=== PATIENT | female | born 1945 | race Caucasian/White ===

== ENCOUNTER 2019-04-27 08:10 | Day surgery (SDC) | payer OTHER, BC ==
[2019-04-18 16:51] LABS: Hematocrit 40.2 % (36.0-45.0); RBC Red Blood Cell Count 4.33 M/uL (3.86-4.86)
[2019-04-18 16:52] LABS: Basophils % 0.7 % (0-1.3); Lymphocytes % 28.5 % (15.3-44.8); MPV 8.4 fL (7.6-11.3)
[2019-04-18 16:53] LABS: Urine Appearance CLEAR; Urine Bilirubin NEGATIVE (NEG); Urine Blood NEGATIVE (NEG); Urine Color YELLOW; Urine Glucose NEGATIVE (NEG); Urine Protein NEGATIVE (NEG); Urine Specific Gravity <=1.005 (1.005-1.030); Urine Urobilinogen 0.2 mg/dL (0.2-1.0)
[2019-04-18 16:54] LABS: Urine Microscopic Reflex NO UMIC
[2019-04-27] MEDS ORDERED: LIDOCAINE 1% MPF 5 ML VIAL ONE (08:31)
[2019-04-27] MEDS ORDERED: FENTANYL CITR 100 MCG/2 ML ONE ×2 (08:31→09:24)
[2019-04-27] MEDS ORDERED: PROPOFOL 200 MG/20 ML VIAL IV ONE (08:31)
[2019-04-27] MEDS ORDERED: Ringers Lactate 1,000 ML IV ONE (08:32)
[2019-04-27] MEDS ORDERED: CEFAZOLIN/SWI 1gm 1 GM/10 ML SYR ONE (08:32)
[2019-04-27] MEDS ORDERED: KETOROLAC 30 MG/ML INJ ONE (09:02)
[2019-04-27] MEDS ORDERED: ONDANSETRON 4 MG/2 ML VIAL ONE (09:11)
[2019-04-27] MEDS ORDERED: GLYCOPYRROLATE 0.2 MG/ML SYR ONE (09:37)
[2019-04-27] MEDS ORDERED: Mastisol Adhesive Liq ONE (09:52)
[2019-04-27] MEDS: MORPHINE 4 MG/ML SYR ONE ×10 (10:30→11:40)
[2019-04-27] MEDS ORDERED: HYDROCODONE/APAP 7.5/325 MG TAB PO ONE (10:50)
[2019-04-27] MEDS: MEPERIDINE HCL 50 MG/ML ONE ×2 (10:55→11:15)
[2019-04-27] MEDS ORDERED: MEPERIDINE HCL 25 MG/0.5 ML ONE (11:28)
[2019-04-27] MEDS ORDERED: CODEINE 30MG/APAP 300MG TAB ONE (12:32)
[2019-04-27 14:27] VITALS: BP 112/92; TEMP 96.9; O2SAT 93
--- NOTE | 2019-04-28 12:32 | OP ---
Surgeon: Scott Edwards MD Log Marker: Ovi. Preoperative Diagnosis: Left carpal tunnel syndrome and left ulnar entrapment at the elbow. Postoperative Diagnosis: Left carpal tunnel syndrome and left ulnar entrapment at the elbow. Procedure Performed: Left carpal tunnel release and left ulnar elbow with medial epicondy lectomy and splint. Anesthesia: General. Procedure In Detail: After satisfactory induction of general anesthesia, the left arm was prepped wi th Betadine scrub, Betadine paint, dry sterile drapes, placed in the usual manner. The arm was eleva elizabeth, exsanguinated with an Esmarch. Tourniquet was inflated to 250 mmHg. Hand placed on Rotalok tab le. The elbow was approached first. A cone incision was marked over the medial epicondyle and then a scalpel was used to make an incision. Dissection proceeded down to the canal for the ulnar nerve. The fascia was opened proximally and distally. A small nerve crossing transversely was preserved wi th its vein and artery. After sheath was opened, the periosteal elevator was used to elevate the fla p off the medial epicondyle and then a saw was used to saw off, edges rounded with a file. Then the periosteal flap was then reclosed using 3-0 Vicryl suture. Attention was then turned to the hand. A carpal tunnel incision was made over the volar surface, zigzagging and approached with flexion creas e. Dissection proceeded down. Transverse carpal ligament was divided with scalpel and brachial fasc ia opened with tenotomy scissors. The superficial arch was identified. The floor was inspected, no masses, although she had some thickened tenosynovium. Then, the nerve was . Tourniquet wa s released. Electrocautery was used for hemostasis. The hand was closed with 4-0 Prolene vertical m attress, half buried mattress of simple sutures. The elbow was closed with 3-0 Vicryl subcu, then 4- 0 PDS running subcuticular, followed by tincture of benzoin, Steri-Strips, then 2-inch Ulises Kerlix a nd a splint to hold the elbow in extension, wrist in 10 degrees of dorsiflexion. Patient tolerated t he procedure well and returned to Recovery. NIKI/MODL Voice ID: [id number] Report ID: [id number]
== END 2019-04-27 13:15 | disposition home or self-care (01) ==
LOC: OR 08:10
PROVIDERS: ATTEND Specialist
PROC: 01N40ZZ Release Ulnar Nerve, Open Approach (ICD-10-PCS; 2019-04-27)
PROC: 0PBL0ZZ Excision of Left Ulna, Open Approach (ICD-10-PCS; 2019-04-27)
PROC: 01N50ZZ Release Median Nerve, Open Approach (ICD-10-PCS; principal; 2019-04-27 09:00)
DX: G56.02 Carpal tunnel syndrome, left upper limb (principal); G56.22 Lesion of ulnar nerve, left upper limb; J44.9 Chronic obstructive pulmonary disease, unspecified; I48.91 Unspecified atrial fibrillation; K21.9 Gastro-esophageal reflux disease without esophagitis; Z91.048 Other nonmedicinal substance allergy status; Z79.01 Long term (current) use of anticoagulants; Z79.899 Other long term (current) drug therapy
CPT/HCPCS: 64721; 64718; 25150; 85025; 36415; 88304; 88311; 81003; J2704; J3010 ×2; J2175 ×2; J0690; J7120; J2405; 88305

== ENCOUNTER 2019-06-29 08:32 | Day surgery (SDC) | payer OTHER, BC ==
--- NOTE | 2019-06-28 14:10 | RAD REPORT ---
EXAM DESCRIPTION: RAD - Hand Right 2 View - 06/28/2019 2:00 pm CLINICAL HISTORY: preop Pain and swelling COMPARISON: No comparisons FINDINGS: Diffuse osteopenia is seen. Radiocarpal arthritic changes are noted. No acute fracture or subluxation is seen.
[~2019-06-29 08:32] MED LIST: CEFAZOLIN/SWI 1gm 1 GM/10 ML SYR IVP SCH
[2019-06-29] MEDS ORDERED: Ringers Lactate 1,000 ML IV ONE (08:51)
[2019-06-29] MEDS ORDERED: CEFAZOLIN/SWI 1gm 1 GM/10 ML SYR ONE (08:51)
[2019-06-29] MEDS ORDERED: LIDOCAINE 1% 20 ML MDV ONE (11:37)
[2019-06-29 12:43] VITALS: BP 149/87; TEMP 98.5; O2SAT 96
--- NOTE | 2019-06-29 23:42 | OP ---
Surgeon: Scott Edwards MD Preoperative Diagnosis: Ganglion in the right middle finger. Postoperative Diagnosis: Ganglion in the right middle finger. Procedure Performed: Excision of ganglion. Anesthesia: Digital block. Procedure In Detail: The patient was placed supine on the operating table, 1% lidocaine with epineph rine used for digital block on the right middle finger. Hands were prepped with Betadine scrub, Beta dine paint, dry sterile drapes applied in the usual manner. Six gloves were used on the digital tour niquet, rolled proximally. Then a curvilinear incision was made distal to the PIP on the ulnar side over the ganglion. Curvilinear incisions were made and dissected down and her ganglion was taken out intact, was originating from the palmar surface underneath the conjoined tendon. The patient then h ad the tourniquet removed. Electrocautery was used for hemostasis. The wound was closed with simple sutures of 4-0 prolene. Dressed with Xeroform and 2 inch Ulises. The patient tolerated the procedur e well and returned to recovery. NIKI/EDVIN Voice ID: [id number] Report ID: [id number]
== END 2019-06-29 12:37 | disposition home or self-care (01) ==
LOC: OR 08:32
PROVIDERS: ATTEND Specialist
PROC: 0LB70ZZ Excision of Right Hand Tendon, Open Approach (ICD-10-PCS; principal; 2019-06-29 10:00)
DX: M67.441 Ganglion, right hand (principal)
CPT/HCPCS: 88304; 73120; 26160; J0690; J7120; 88305

== ENCOUNTER 2022-01-11 16:31 | Emergency (ER) | payer OTHER, BC ==
--- NOTE | 2022-01-11 18:02 | RAD REPORT ---
EXAM DESCRIPTION: CT - Head Brain Wo Cont - 01/11/2022 5:53 pm CLINICAL HISTORY: R sided weakness x 3d COMPARISON: <Comparisons> TECHNIQUE: Axial 5 mm thick images of the head were obtained without IV contrast. All CT scans are performed using dose optimization technique as appropriate and may include automated exposure control or mA/KV adjustment according to patient size. FINDINGS: No intracranial hemorrhage is present. The exam is grossly abnormal. There is a 3 centimet er cystic or low-density cavity in the anterior inferior right frontal lobe. More superiorly in the r ight frontal lobe there is a 12 millimeter round hyperdense mass. In the posterior left frontal lobe there is a 14 millimeter heterogeneous isodense mass. All lesions have significant surrounding edema in the white matter. Additional lesion along the posterior limb internal capsule on the left is likel y present. This is an intracranial metastatic disease pattern most commonly. There is 2-3 mm of right to left midline shift. No acute cortical based infarction. Mastoid air cells and visualized portions of the paranasal sinuses are clear. No acute bony findings. IMPRESSION: Multiple intracranial mass lesions are present without hemorrhage. There is substantial surrounding white matter edema. Multiple intracranial metastatic lesions is the most common etiology. Additional imaging may be neede d to the terminated primary source. No intracranial hemorrhage.
--- NOTE | 2022-01-11 18:15 | ER ---
Nurse's Notes [facility] Name: Cony Murillo Age: 76 yrs Sex: Female : 1945 Arrival Date: 01/11/2022 Time: 16:33 Bed 5 Private MD: Diagnosis: Brain metastasis Presentation: 01/11 16:43 Chief complaint: Patient's son or daughter states: L sided facial droop that began last ph Wednesday, as the week progressed pt began having slurred speech, R sided weakness, drooling, and mild confusion. Was out of town when symptoms began, daughter states that she refused to go to the ER at that time. Coronavirus screen: Vaccine status: Patient reports being unvaccinated. Ebola Screen: No symptoms or risks identified at this time. No acute neurological deficit is noted. Pre-hospital glucose is not applicable to this patient. Initial Sepsis Screen: Does the patient meet any 2 criteria? No. Patient's initial sepsis screen is negative. Does the patient have a suspected source of infection? No. Patient's initial sepsis screen is negative. Risk Assessment: Do you want to hurt yourself or someone else? Patient reports no desire to harm self or others. Onset of symptoms was January 11, 2022. 16:43 Method Of Arrival: Ambulatory 16:43 Acuity: YAQUELIN 3 ph Triage Assessment: 16:48 The onset of the patients symptoms was January 04, 2022 at 12:00. General: Appears in no ph apparent distress. uncomfortable, well groomed, Behavior is calm, cooperative, appropriate for age. Pain: Denies pain. Neuro: Level of Consciousness is awake, alert, obeys commands, Oriented to person, place, time, situation, Reefer Truck Driver are weak on right Moves all extremities. Speech is slurred, Facial droop on left. 17:58 Neuro: Reports numbness weakness in right arm. iglesias Stroke Activation: Symptom onset > 6 hours Physician: Stroke Attending; Name: ; Notified At: ; Arrived At: Physician: Chief Stroke Resident; Name: ; Notified At: ; Arrived At: Physician: Stroke Resident; Name: ; Notified At: ; Arrived At: Physician: ED Attending; Name: ; Notified At: ; Arrived At: Physician: ED Resident; Name: ; Notified At: ; Arrived At: Historical: - Home Meds: 16:45 Simvastatin Oral [Active]; sotalol Oral [Active]; Xarelto Oral [Active]; iglesias - PMHx: 16:45 Atrial Fib; Hyperlipidemia; Hypertension; COPD; iglesias - Immunization history:: Adult Immunizations up to date. - Social history:: Smoking status: Patient denies any tobacco usage or history of. Screenin:45 Abuse screen: Denies threats or abuse. Denies injuries from another. Nutritional iglesias screening: No deficits noted. Tuberculosis screening: No symptoms or risk factors identified. Fall Risk Gait- Weak (10 pts.). Assessment: 16:44 VAN Scoring: Arm Drift:. Pain: Denies pain. Neuro: Level of Consciousness is awake, iglesias alert, obeys commands. 16:50 Patient has been NPO before screening. The patient is alert, and able to follow iglesias commands. The patient does not exhibit slurred or garbled speech. The patient is not exhibiting difficulty speaking. The patient is exhibiting difficulty understanding words. The patient is able to swallow own secretions with no drooling or need for suction. 17:59 Patient tolerated one teaspoon of water. No drooling, immediate coughing, gurgling, or iglesias clearing of the throat was noted. The patient tolerated 90mL of water. No drooling, immediate coughing, gurgling, or clearing of the throat was noted. 18:15 Reassessment: Initiated transfer to [facility]. Spoke with Ayla transfer ss coordinator who states she will call back. 19:34 T-PA (Activase) Screening: Contraindications: Patient reports onset of signs and as6 symptoms of stroke greater than 6 hours ago: Yes. Reassessment: Patient appears in no apparent distress at this time. Patient is alert, oriented x 3, equal unlabored respirations, skin warm/dry/pink. Vital Signs: 16:43 BP 145 / 87; Pulse 74; Resp 18; Temp 97.8(TE); Pulse Ox 97% on R/A; Weight 58.97 kg; ph Height 5 ft. 3 in. (160.02 cm); Pain 0/10; 17:58 BP 126 / 53; Pulse 65; Resp 17; Pulse Ox 97% on R/A; iglesias 19:35 BP 119 / 61; Pulse 58; Resp 20 S; Pulse Ox 96% on R/A; as6 16:43 Body Mass Index 23.03 (58.97 kg, 160.02 cm) ph NIH Stroke Scale Scores: 16:49 NIHSS Score: 3 iglesias 16:50 NIHSS Score: 5 en ED Course: 16:33 Patient arrived in ED. rg4 16:40 Francia Morgan PA is PHCP. en 16:40 Mario Rangel MD is Attending Physician. en 16:44 Lisa Manjarrez, CHASTITY is Primary Nurse. iglesias 16:45 Patient has correct armband on for positive identification. Bed in low position. iglesias 16:45 No provider procedures requiring assistance completed. iglesias 16:47 Triage completed. ph 16:48 Arm band placed on Patient placed in an exam room. ph 16:49 Inserted saline lock: 20 gauge in right antecubital area, using aseptic technique. zm Blood collected. 16:49 EKG done, by ED staff, reviewed by Francia TELLO. mb7 17:55 CT Head Brain wo Cont In Process Unspecified. EDMS 18:11 Francia initiated call for transfer to [facility], spoke with "". wm 18:49 CXR XRAY In Process Unspecified. EDMS 20:08 Pt accepted for transfer by , Lee, Ricarda \\T\\ 18:57, per Oscar Rivas. wm 20:52 Patient transferred, IV remains in place. as6 Administered Medications: 19:34 Drug: Decadron - Dexamethasone 10 mg Route: IVP; Site: right antecubital; as6 20:51 Follow up: Response: No adverse reaction as6 19:34 Drug: NS 0.9% 1000 ml Route: IV; Rate: 100 ml/hr; Site: right antecubital; as6 20:51 Follow up: IV Status: Infusion continued upon transfer as6 Medication: 16:45 VIS not applicable for this client. iglesias Outcome: 18:13 ER care complete, transfer ordered by . en 20:51 Transferred by ground EMS to [facility], Transfer form completed. as6 20:51 Condition: stable 20:51 Instructed on the need for transfer. 20:52 Patient left the ED. as6 NIH Stroke Scale - NIH Stroke Score Date: 01/11/2022 Time: 16:49 Total Score = 3 1a. Level of Consciousness (LOC) - 0(Alert) 1b. Level of Consciousness (LOC) (Month \\T\\ Age) - 0(Both) 1c. LOC Commands (Open \\T\\ Closes Eyes/Cleaning Custodian) - 0(Both) 2. Best Gaze (Lateral Gaze Paresis) - 0(Normal) 3. Visual Field Loss - 0(No visual loss) 4. Facial Palsy - 1(Minor Paralysis) 5a. Left Arm: Motor (10-second hold) - 0(No drift) 5b. Right Arm: Motor (10-second hold) - 0(No drift) 6a. Left Leg: Motor (5-second hold - always test supine) - 0(No drift) 6b. Right Leg: Motor (5-second hold - always test supine) - 0(No drift) 7. Limb Ataxia (finger/nose \\T\\ heel/goode - test with eyes open) - 1(Present in one limb) 8. Sensory Loss (pinprick arms/legs/face) - 1(Mild to moderate loss) 9. Best Language: Aphasia (description/naming/reading) - 0(No aphasia) 10. Dysarthria (speech clarity - read or repeat words) - 0(Normal) 11. Extinction and Inattention (visual/tactile/auditory/spatial/personal) - 0(No abnormality) Initials: NIH Stroke Scale - NIH Stroke Score Date: 01/11/2022 Time: 16:50 Total Score = 5 1a. Level of Consciousness (LOC) - 0(Alert) 1b. Level of Consciousness (LOC) (Month \\T\\ Age) - 0(Both) 1c. LOC Commands (Open \\T\\ Closes Eyes/Cleaning Custodian) - 0(Both) 2. Best Gaze (Lateral Gaze Paresis) - 0(Normal) 3. Visual Field Loss - 0(No visual loss) 4. Facial Palsy - 1(Minor Paralysis) 5a. Left Arm: Motor (10-second hold) - 0(No drift) 5b. Right Arm: Motor (10-second hold) - 1(Drift) 6a. Left Leg: Motor (5-second hold - always test supine) - 0(No drift) 6b. Right Leg: Motor (5-second hold - always test supine) - 1(Drift) 7. Limb Ataxia (finger/nose \\T\\ heel/goode - test with eyes open) - 0(Absent) 8. Sensory Loss (pinprick arms/legs/face) - 1(Mild to moderate loss) 9. Best Language: Aphasia (description/naming/reading) - 0(No aphasia) 10. Dysarthria (speech clarity - read or repeat words) - 1(Mild to Moderate) 11. Extinction and Inattention (visual/tactile/auditory/spatial/personal) - 0(No abnormality) Initials: en Signatures: Dispatcher [employer] EDDivya Alcantara RN RN Freda Delgado RN RN Ruma Kumari rg4 Teresa Beavers Ashby, RN RN as6 Jessica Brooks mb7 Lisa Manjarrez RN RN ha Martinez, Zaina zm Newkirk, Elizabeth, PA PA en Corrections: (The following items were deleted from the chart) 16:49 16:44 NIHSS Score: 2 iglesias iglesias
--- NOTE | 2022-01-11 18:15 | EDPHYS ---
Physician Documentation [facility] Name: Cony Murillo Age: 76 yrs Sex: Female : 1945 Arrival Date: 01/11/2022 Time: 16:33 Bed 5 Private MD: ED Physician Mario Rangel HPI: 01/11 17:16 This 76 yrs old Female presents to ER via Ambulatory with complaints of Slurred Speech, en Numbness Of Arm. 17:16 76 yo F with h/o A fib on Xarelto presents to ED with 3d of right sided weakness and en progressive slurred speech. Daughter noticed right sided facial droop 3d ago with increased drooling. Worsening right upper extremity weakness over last 1.5 days with slurred speech. Pt denies F/C/N/V. Intermittent HAs but nothing unusual for patient. No vision changes, CP, palpitations, or AMS. Pt with remote h/o uterine CA in the 1969' s/p OLU and thyroid CA s/p thyroidectomy 4yr ago and was in a trial at [facility], but was thought to be in remission per pt and family. Does not see ONC on regular basis. . Historical: - Home Meds: 16:45 Simvastatin Oral [Active]; sotalol Oral [Active]; Xarelto Oral [Active]; iglesias - PMHx: 16:45 Atrial Fib; Hyperlipidemia; Hypertension; COPD; iglesias - Immunization history:: Adult Immunizations up to date. - Social history:: Smoking status: Patient denies any tobacco usage or history of. ROS: 17:16 Constitutional: Negative for fever, chills, and weight loss. en 17:16 Constitutional: Negative for body aches, chills, fatigue, fever. 17:16 Eyes: Negative for blurry vision, vision loss, visual disturbance. 17:16 Cardiovascular: Negative for chest pain, edema, palpitations. 17:16 Respiratory: Negative for cough, shortness of breath. 17:16 Abdomen/GI: Negative for abdominal pain, nausea and vomiting. 17:16 Neuro: Positive for right facial droop, slurred speech, RUE weakness. 17:16 All other systems are negative. Exam: 17:16 Constitutional: Elderly appearing but cooperative and folllowing commands en 17:16 Head/face: right sided drooling. 17:16 Eyes: Pupils: equal, round, and reactive to light and accomodation, Extraocular movements: intact throughout, Conjunctiva: normal, no exudate, no injection. 17:16 ENT: Mouth: Lips: moist, Oral mucosa: pink and intact, moist, Posterior pharynx: Airway: patent. 17:16 Neck: ROM/movement: is normal, no carotid bruits. 17:16 Cardiovascular: Rate: normal, Rhythm: irregular, with audible PVCs. 17:16 Respiratory: the patient does not display signs of respiratory distress, Respirations: normal, Breath sounds: are clear throughout, no decreased breath sounds, no rales, rhonchi, no stridor, no wheezing. 17:16 Abdomen/GI: Inspection: abdomen appears normal, Bowel sounds: normal, Palpation: abdomen is soft and non-tender, in all quadrants. 17:16 Musculoskeletal/extremity: no swelling or deformity. 17:16 Neuro: Orientation: appropriate for stated age, to person, place \\T\\ time. to person, place, time, situation, Mentation: appropriate for stated age, Motor: Vital Signs: 16:43 BP 145 / 87; Pulse 74; Resp 18; Temp 97.8(TE); Pulse Ox 97% on R/A; Weight 58.97 kg; ph Height 5 ft. 3 in. (160.02 cm); Pain 0/10; 17:58 BP 126 / 53; Pulse 65; Resp 17; Pulse Ox 97% on R/A; iglesias 19:35 BP 119 / 61; Pulse 58; Resp 20 S; Pulse Ox 96% on R/A; as6 16:43 Body Mass Index 23.03 (58.97 kg, 160.02 cm) ph NIH Stroke Scale Scores: 16:49 NIHSS Score: 3 iglesias 16:50 NIHSS Score: 5 en MDM: 16:40 Patient medically screened. en 16:50 Data reviewed: vital signs, nurses notes, lab test result(s), EKG, radiologic studies, en CT scan, EKG with sinus rhythm at 70 BPM with PVCs, no STEMI, and as a result, I will Plan for admission. Pt with NIH 5 with sxs of CVA. Sxs > 72 hours old and on Xarelto, not a candidate for TNK. HDS. 18:09 ED course: RADS called. pt with multiple brain mets with very small 2-3 mm midline en shift to the right without hemorrhage. reviewed with pt and family. Will transfer for higher level of care. 18:33 ED course: Spoke with Dr Mensah, Neurology. Ok to admit to Hospitalist service and en Neurology will consult. . 18:56 ED course: Hyperkalemia with mild KRYSTIAN. Accepted by Dr Stearns for Neuro Tele. Will give en 1L NS bolus. 01/11 17:15 Order name: CBC with Diff en 01/11 17:15 Order name: CMP en 01/11 17:15 Order name: Troponin High Sensitivity en 01/11 17:15 Order name: PT-INR en 01/11 17:15 Order name: Ptt, Activated en 01/11 17:34 Order name: SARS-COV-2 RT PCR (Document "Date of Onset" if Symptomatic) eb 01/11 17:15 Order name: EKG - Nurse/Tech; Complete Time: 17:48 en 01/11 17:15 Order name: CT Head Brain wo Cont; Complete Time: 18:33 en 01/11 17:15 Order name: Saline Lock; Complete Time: 17:47 en 01/11 18:01 Order name: CXR XRAY en Administered Medications: 19:34 Drug: Decadron - Dexamethasone 10 mg Route: IVP; Site: right antecubital; as6 20:51 Follow up: Response: No adverse reaction as6 19:34 Drug: NS 0.9% 1000 ml Route: IV; Rate: 100 ml/hr; Site: right antecubital; as6 20:51 Follow up: IV Status: Infusion continued upon transfer as6 Disposition: 01/12 09:54 Co-signature as Attending Physician, Mario Rangel MD I agree with the assessment and kdr plan of care. Disposition Summary: 01/11/22 18:13 Transfer Ordered Transfer Location: [facility] en Reason: Higher level of care en Condition: Stable en Problem: new en Symptoms: are unchanged en Accepting Physician: pending(01/11/22 20:52) as6 Diagnosis - Brain metastasis en Forms: - Medication Reconciliation Form en - SBAR form en Critical care time excluding procedures: 01/11 16:50 Critical care time: Bedside Care: 20 minutes, Consultation: 10 minutes, Family en Intervention: 5 minutes. Total time: 35 minutes NIH Stroke Scale - NIH Stroke Score Date: 01/11/2022 Time: 16:49 Total Score = 3 1a. Level of Consciousness (LOC) - 0(Alert) 1b. Level of Consciousness (LOC) (Month \\T\\ Age) - 0(Both) 1c. LOC Commands (Open \\T\\ Closes Eyes/Forest Botany Instructor) - 0(Both) 2. Best Gaze (Lateral Gaze Paresis) - 0(Normal) 3. Visual Field Loss - 0(No visual loss) 4. Facial Palsy - 1(Minor Paralysis) 5a. Left Arm: Motor (10-second hold) - 0(No drift) 5b. Right Arm: Motor (10-second hold) - 0(No drift) 6a. Left Leg: Motor (5-second hold - always test supine) - 0(No drift) 6b. Right Leg: Motor (5-second hold - always test supine) - 0(No drift) 7. Limb Ataxia (finger/nose \\T\\ heel/goode - test with eyes open) - 1(Present in one limb) 8. Sensory Loss (pinprick arms/legs/face) - 1(Mild to moderate loss) 9. Best Language: Aphasia (description/naming/reading) - 0(No aphasia) 10. Dysarthria (speech clarity - read or repeat words) - 0(Normal) 11. Extinction and Inattention (visual/tactile/auditory/spatial/personal) - 0(No abnormality) Initials: NIH Stroke Scale - NIH Stroke Score Date: 01/11/2022 Time: 16:50 Total Score = 5 1a. Level of Consciousness (LOC) - 0(Alert) 1b. Level of Consciousness (LOC) (Month \\T\\ Age) - 0(Both) 1c. LOC Commands (Open \\T\\ Closes Eyes/Forest Botany Instructor) - 0(Both) 2. Best Gaze (Lateral Gaze Paresis) - 0(Normal) 3. Visual Field Loss - 0(No visual loss) 4. Facial Palsy - 1(Minor Paralysis) 5a. Left Arm: Motor (10-second hold) - 0(No drift) 5b. Right Arm: Motor (10-second hold) - 1(Drift) 6a. Left Leg: Motor (5-second hold - always test supine) - 0(No drift) 6b. Right Leg: Motor (5-second hold - always test supine) - 1(Drift) 7. Limb Ataxia (finger/nose \\T\\ heel/goode - test with eyes open) - 0(Absent) 8. Sensory Loss (pinprick arms/legs/face) - 1(Mild to moderate loss) 9. Best Language: Aphasia (description/naming/reading) - 0(No aphasia) 10. Dysarthria (speech clarity - read or repeat words) - 1(Mild to Moderate) 11. Extinction and Inattention (visual/tactile/auditory/spatial/personal) - 0(No abnormality) Initials: en Signatures: Dispatcher [employer] EDMS Mario Rangel MD MD [facility] Mykel Ramos RN RN as6 Lilian-JoserLisa RN RN Francia Mendoza PA PA en Corrections: (The following items were deleted from the chart) 18:10 17:16 76 yo F with h/o A fib on Xarelto presents to ED with 3d of right sided en weakness and progressive slurred speech. Daughter noticed right sided facial droop 3d ago with increased drooling. Worsening right upper extremity weakness over last 1.5 days with slurred speech. Pt denies F/C/N/V. Intermittent HAs but nothing unusual for patient. No vision changes, CP, palpitations, or AMS. en 20:52 18:13 pending en as6
[2022-01-11 19:06] LABS: Absolute Lymphocytes (CBC) 2.3 K/uL (0.7-4.9); Hematocrit 35.6 % (36.0-45.0); Lymphocytes % 28.9 % (15.3-44.8); MCV 90.1 fL (80-100); RBC Red Blood Cell Count 3.95 M/uL (3.86-4.86)
[2022-01-11 19:09] LABS: Protime INR 1.09
[2022-01-11 19:21] LABS: Albumin 3.1 g/dL (3.4-5.0); Bilirubin Total 0.3 mg/dL (0.2-1.0); Protein, Total 6.4 g/dL (6.4-8.2); Troponin High Sensitivity 3.8 pg/mL (<58.9)
[2022-01-11] MEDS ORDERED: dexAMETHasone 10 MG/ML VIAL ONE (19:34)
[2022-01-11] MEDS ORDERED: NA CHLORIDE 0.9% 1,000 ML ONE (19:34)
--- NOTE | 2022-01-11 19:35 | RAD REPORT ---
EXAM DESCRIPTION: RAD - Chest Single View - 01/11/2022 6:47 pm CLINICAL HISTORY: brain lesion, presumed metastatic, with unknown primary COMPARISON: Two view chest September 2019 TECHNIQUE: AP portable chest image was obtained 01/11/2022 6:47 pm . FINDINGS: No mass the lung parenchyma seen. Baseline fibrotic lung pattern matches comparison. No hi lar mass or lymphadenopathy seen. Heart and vasculature are normal. No measurable pleural effusion an d no pneumothorax. No acute bony abnormality seen. No acute aortic findings suspected. IMPRESSION: No acute cardiopulmonary process. No evidence for a primary lung cancer as a source for the multiple brain lesions. No significant change from comparison.
[2022-01-11 21:07] VITALS: TEMP 97.8
[2022-01-11 21:11] VITALS: BP 119/61; O2SAT 96
--- NOTE | 2022-01-13 12:48 | EKG ---
Test Date: 2022-01-11 Test Time: 16:46:41 Granite Polisher: MB MEASUREMENT RESULTS: Intervals: Rate: 70 UT: 156 QRSD: 64 QT: 414 QTc: 447 [place]: P: 81 UT: 156 QRS: 76 T: 89 INTERPRETIVE STATEMENTS: Sinus rhythm with frequent premature ventricular complexes ST abnormality, possible digitalis effect Abnormal ECG Compared to ECG 01/23/2016 20:37:33 ST (T wave) deviation now present Electronically Signed On 01-13-22 12:47:21 CDT by Surinder Jewell
== END 2022-01-11 20:52 | disposition short-term general hospital (02) ==
LOC: ER 16:31
DX: C79.31 Secondary malignant neoplasm of brain (principal); Z85.850 Personal history of malignant neoplasm of thyroid; Z85.42 Personal history of malignant neoplasm of other parts of uterus; R47.81 Slurred speech; I10 Essential (primary) hypertension; I48.91 Unspecified atrial fibrillation; Z79.01 Long term (current) use of anticoagulants; Z20.822 Contact with and (suspected) exposure to COVID-19
CPT/HCPCS: 96361; 93005; 85025; 36415; 85610; 85730; 84484; 80053; 70450; 71045; 96374; 99285; U0003; J1100; J7030